=== PATIENT | male | born 1970 | race Caucasian/White ===

== ENCOUNTER 2021-11-25 13:35 | Emergency (ER) | payer OTHER ==
[2021-11-25] MEDS ORDERED: Bacitracin Oint 1 GM U/D Packet TOP ONE (13:58)
== END 2021-11-25 14:15 | disposition home or self-care (01) ==
LOC: DL.ED 13:35
DX: S01.511A Laceration without foreign body of lip, initial encounter (principal); W26.8XXA Contact with other sharp object(s), not elsewhere classified, initial encounter
CPT/HCPCS: 99282